=== PATIENT | female | born 1965 | race Caucasian/White ===

== ENCOUNTER 2018-07-17 11:50 | Emergency (ER) | payer MEDICAID ==
[~2018-07-17] VITALS: Ht 152.4 cm; Wt 56.7 kg
--- NOTE | 2018-07-17 11:59 | NUR ---
PT AMBULATED TO ER BED 08
[2018-07-17 12:04] VITALS: BP 108/59
[2018-07-17] MEDS ORDERED: KETOROLAC 60 MG/2 ML VIAL IM ONE (12:10)
--- NOTE | 2018-07-17 12:10 | NUR ---
PT BIB SELF FOR LOWER BACK JOSHUA/SACRAL X1 DAY. PT REPORTS GOING ON SLIDE WITH GRANDAUGHTER AND LANDING ON BUTT. SHE THINKS IT MIGHT HAVE EXACERBATED HER SCIATICA. PT REPORTS "FEELS LIKE BEING PUNCHED" LIKE PAIN AT 10/10 IN LOWER BACK/SACRAL REGION THAT RADITES DOWN BLE. PT REPORTS TINGLING IN FEET AND TOES. +CMS, NO BRUISING, SWELLING, OR DEFORMITIES PRESENT. PT DENEIS HITTING HEAD OR ANY OTHER PART OF BODY. 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 VSS. VICTORINA ELIZONDO TO SEE PT. MEDHX:SCIATICA RX:NONE
--- NOTE | 2018-07-17 12:16 | NUR ---
PT TAKEN TO RADIOLOGY AT THIS TIME
--- NOTE | 2018-07-17 12:25 | NUR ---
PT RETURNED FROM RADIOLOGY AT THIS TIME
--- NOTE | 2018-07-17 14:16 | NUR ---
PT LAYING ON LT SIDE IN BED, ON PHONE. PT STATES THAT SHE CANNOT LAY ON HER BACK BECAUSE OF PAIN. REPORTS PAIN AT 10/10 AT THIS TIME. VSS.
[2018-07-17] MEDS ORDERED: MORPHINE SULFATE 4 MG/ML SYR IM ONE (14:25)
[2018-07-17 14:41] VITALS: BP 94/68
--- NOTE | 2018-07-17 14:41 | NUR ---
Patient discharged with v/s stable. Written and verbal after care instructions given and explained. Patient alert, oriented and verbalized understanding of instructions. Ambulatory with steady gait. All questions addressed prior to discharge. ID band removed. Patient advised to follow up with PMD. Rx of NORCO given. Patient educated on indication of medication including possible reaction and side effects. Opportunity to ask questions provided and answered. PT WAITING IN LOBBY FOR DAUGHTER TO PICK HER UP.
== END 2018-07-17 14:41 | disposition home or self-care (01) ==
LOC: MED 11:50
DX: M54.9 Dorsalgia, unspecified (principal); F17.200 Nicotine dependence, unspecified, uncomplicated; J44.9 Chronic obstructive pulmonary disease, unspecified; Z90.49 Acquired absence of other specified parts of digestive tract; Z85.9 Personal history of malignant neoplasm, unspecified; W19.XXXA Unspecified fall, initial encounter; Y93.89 Activity, other specified; Y92.89 Other specified places as the place of occurrence of the external cause; Y99.8 Other external cause status
CPT/HCPCS: 72100; 81002; 81025; 96372; 99283; J1885; J2270

== ENCOUNTER 2018-07-26 07:56 | Emergency (ER) | payer MEDICAID ==
[~2018-07-26] VITALS: Ht 152.4 cm; Wt 52.2 kg
[2018-07-26 07:59] VITALS: BP 154/73
--- NOTE | 2018-07-26 08:08 | NUR ---
Note undone in EDM - 07/26/18 at 0829 by [email or web address] 53 Y FEMALE BIB SELF C/O MOIST COUGH, CHEST CONGESTION , SOB X LAST NIGHT. PT STATES SHE HAS COMPLETED 7 HHN TREATMENTS AT HOME; FEELS SAME WITH NO RELIEF. FULL CLEAR SPEECH, NO ACCESSORY MUSCLE USE NOTED AT THIS TIME. WHEEZING BILATERALLY. PT OXYGEN AT 98% RA. PT STATES IT IS DIFFICULT TO TALK. VSS AT THIS TIME. AA0X4. BED IS DOWN, LOCKED, BED RAIL X 1, ERMD NOTIFIED. HX--COPD (INTUBATED 2017), ASTHMA RX--ALBUTEROL
--- NOTE | 2018-07-26 08:08 | NUR ---
53 Y FEMALE BIB SELF C/O MOIST COUGH, CHEST CONGESTION , SOB X LAST NIGHT. PT STATES SHE HAS COMPLETED 7 HHN TREATMENTS AT HOME; FEELS SAME WITH NO RELIEF. FULL CLEAR SPEECH, NO ACCESSORY MUSCLE USE NOTED AT THIS TIME. RONCHI BILATERALLY. PT OXYGEN AT 98% RA. PT STATES IT IS DIFFICULT TO TALK. VSS AT THIS TIME. AA0X4. BED IS DOWN, LOCKED, BED RAIL X 1, ERMD NOTIFIED. HX--COPD (INTUBATED 2018), ASTHMA RX--ALBUTEROL
[2018-07-26] MEDS ORDERED: DEXAMETHASONE 10 MG/ML VIAL PO ONE (08:15)
--- NOTE | 2018-07-26 08:20 | NUR ---
XRAT AT BEDSIDE
[2018-07-26 09:06] VITALS: BP 151/72
--- NOTE | 2018-07-26 09:06 | NUR ---
Patient discharged with v/s stable. Written and verbal after care instructions given and explained. Patient alert, oriented and verbalized understanding of instructions. Ambulatory with steady gait. All questions addressed prior to discharge. ID band removed. Patient advised to follow up with PMD. Rx of GUITASSIN, ALBUTEROL INHALATION, ALBUTEROL SOLUTION, AZITHROMYCIN, PREDNISONE given. Patient educated on indication of medication including possible reaction and side effects. Opportunity to ask questions provided and answered.
== END 2018-07-26 09:06 | disposition home or self-care (01) ==
LOC: MED 07:56
DX: J44.1 Chronic obstructive pulmonary disease with (acute) exacerbation (principal); F17.210 Nicotine dependence, cigarettes, uncomplicated; Z98.890 Other specified postprocedural states
CPT/HCPCS: 71045; 93005; 99283; J1100; Q0092

== ENCOUNTER 2018-08-05 23:59 | Emergency (ER) | payer MEDICAID ==
[~2018-08-05] VITALS: Ht 152.4 cm; Wt 48.5 kg
[2018-08-06 00:08] VITALS: BP 131/74
--- NOTE | 2018-08-06 00:08 | NUR ---
TO BED # 08 AMBULATORY , REPORT GIVEN TO RYLAN GRACE
--- NOTE | 2018-08-06 00:10 | NUR ---
53/F PRESENTS TO ED, C/O CONSTANT STABBING R FLANK/RUQ TO R MID BACK PAIN, X2 DAYS, WORSENING TODAY. PT REPORTS N/V X2 EPISODES TODAY. LBM TODAY, REPORTS CONSTIPATION. PT DENIES FEVER, CP, SOB, DIARRHEA OR DYSURIA. BS HYPERACTIVE X4, ABD SOFT ROUND TENDER TO R FLANK. AOX4, GCS 15, SKIN PINK WARM AND DRY, RR EVEN AND UNLABORED. HX ASTHMA, COPD, GASTRIC SLEEVE, CHOLECYSTECTOMY, SCIATICA, SMOKER (1PP 3DAYS)
[2018-08-06] MEDS ORDERED: MORPHINE SULFATE 4 MG/ML SYR IVP ONE (00:45)
[2018-08-06 01:06] LABS: BASOPHILS % (AUTO) 0.2 % (0.0-2.0); EOSINOPHILS # (AUTO) 0.6 K/uL (0-0.4); EOSINOPHILS % (AUTO) 4.2 % (0.0-4.0); HEMATOCRIT 38.8 % (36-48); HEMOGLOBIN 12.5 g/dL (12.0-16.0); LYMPHOCYTES # (AUTO) 0.8 K/uL (2.5-16.5); MEAN CORPUSCULAR HEMOGLOBIN 25 pg (27-31); MEAN CORPUSCULAR HGB CONC 32 g/dL (33-37); MEAN CORPUSCULAR VOLUME 77.6 fL (80-94); MONOCYTES # (AUTO) 0.1 K/uL (0.8-1.0); NEUTROPHILS # (AUTO) 11.7 K/uL (1.8-7.7); NEUTROPHILS % (AUTO) 88.2 % (42.2-75.2); PLATELET COUNT (AUTO) 375 K/uL (140-450); RED CELL DISTRIBUTION WIDTH 15.8 % (11.6-13.7); WHITE BLOOD COUNT (AUTO) 13.2 K/uL (4.8-10.8)
[2018-08-06 01:16] LABS: LYMPHOCYTES % (AUTO) 6.4 % (20.5-51.1)
[2018-08-06 01:18] LABS: ANION GAP 9.9 (8-16); CARBON DIOXIDE 27.9 mmol/L (21-32); CREATININE 0.9 mg/dL (0.6-1.3); POTASSIUM 3.8 mmol/L (3.5-5.1)
[2018-08-06 01:22] LABS: ALBUMIN 3.4 g/dL (3.4-5.0); TOTAL BILIRUBIN 0.4 mg/dL (0.0-1.0)
--- NOTE | 2018-08-06 01:25 | NUR ---
PT TAKEN TO CT
[2018-08-06 01:30] LABS: APPEARANCE,URINE CLEAR (CLEAR); BILIRUBIN,URINE NEGATIVE (NEGATIVE); BLOOD, URINE NEGATIVE (NEGATIVE); COLOR,URINE YELLOW (YELLOW); LEUKOCYTE ESTERASE ,URINE 1+ (NEGATIVE); NITRITE, URINE NEGATIVE (NEGATIVE); PH,URINE 6.5 (5.0-9.0); UGLUCOSE NEGATIVE (NEGATIVE)
[2018-08-06 01:52] LABS: RBC,URINE 0-5 /HPF (0-5)
[2018-08-06] MEDS ORDERED: cefTRIAXone 1,000 MG in LIDOCAINE MPF 1% - 5 mL VIAL 2.1 ML IM ONE (02:05)
[2018-08-06 02:50] VITALS: BP 126/72
--- NOTE | 2018-08-06 02:50 | NUR ---
Patient discharged with v/s stable. Written and verbal after care instructions given and explained. Patient alert, oriented and verbalized understanding of instructions. Ambulatory with steady gait. All questions addressed prior to discharge. ID band removed. Patient advised to follow up with PMD. Rx of NAPROXEN, CIPRO given. Patient educated on indication of medication including possible reaction and side effects. Opportunity to ask questions provided and answered.
== END 2018-08-06 02:50 | disposition home or self-care (01) ==
LOC: MED 23:59
DX: N12 Tubulo-interstitial nephritis, not specified as acute or chronic (principal); F17.210 Nicotine dependence, cigarettes, uncomplicated; J44.9 Chronic obstructive pulmonary disease, unspecified; Z85.6 Personal history of leukemia; Z90.49 Acquired absence of other specified parts of digestive tract
CPT/HCPCS: 36415; 74176; 80053; 81001; 83690; 85025; 87086; 96372; 96374; 99284; J0696; J2001; J2270; 99283

== ENCOUNTER 2018-08-09 06:40 | Emergency (ER) | payer MEDICAID ==
[~2018-08-09] VITALS: Ht 152.4 cm; Wt 48.5 kg
[2018-08-09 06:46] VITALS: BP 131/90
--- NOTE | 2018-08-09 06:46 | NUR ---
to bed # 09 ambulatory
--- NOTE | 2018-08-09 07:05 | NUR ---
PT BIB self C/O lower back pain for 5 days. Reports constant sharp 10/10 pain in RT lower back. PT denies trauma, no swelling, bruising, or deformity present. Seen by ERMD 08/05/18 for UTI and recieved ABX. PT reports pain is unbearable. VSS. ER MD to see pt.
[2018-08-09] MEDS ORDERED: ONDANSETRON 4 MG ODT PO ONE (07:15)
[2018-08-09] MEDS ORDERED: KETOROLAC 30 MG/ML VIAL IM ONE (07:15)
[2018-08-09] MEDS ORDERED: MORPHINE SULFATE 4 MG/ML SYR IM ONE (07:15)
[2018-08-09 07:40] LABS: APPEARANCE,URINE CLEAR (CLEAR); BILIRUBIN,URINE NEGATIVE (NEGATIVE); BLOOD, URINE NEGATIVE (NEGATIVE); COLOR,URINE YELLOW (YELLOW); LEUKOCYTE ESTERASE ,URINE NEGATIVE (NEGATIVE); NITRITE, URINE NEGATIVE (NEGATIVE); UGLUCOSE NEGATIVE (NEGATIVE)
[2018-08-09] MEDS ORDERED: HYDROcodone/APAP 5/325 MG 1 TAB TAB PO ONE (08:10)
[2018-08-09 08:35] VITALS: BP 125/75
== END 2018-08-09 08:34 | disposition home or self-care (01) ==
LOC: MED 06:40
DX: R10.9 Unspecified abdominal pain (principal); J44.9 Chronic obstructive pulmonary disease, unspecified; Z85.6 Personal history of leukemia
CPT/HCPCS: 81003; 81025; 96372; 99283; J1885; J2270; Q0162

== ENCOUNTER 2018-10-07 14:13 | Emergency (ER) | payer MEDICAID ==
[~2018-10-07] VITALS: Ht 152.4 cm; Wt 52.6 kg
[2018-10-07 14:22] VITALS: BP 112/72
--- NOTE | 2018-10-07 14:48 | NUR ---
x ray at bedside.
--- NOTE | 2018-10-07 14:50 | NUR ---
PT PRESENTS TO ED WITH C/O PRODUCTIVE COUGH X 4 DAYS. +N/+V/+FEVER. AFEBRILE AT THIS TIME. ORAL TEMP 98.2. PATIENT STATES GENERALIZED PAIN IS 10/10 AT THIS TIME. ERMD TO EVALUATE PT.
--- NOTE | 2018-10-07 14:55 | NUR ---
DR. QUINN BEDSIDE EVALUATING PT
[2018-10-07] MEDS ORDERED: ONDANSETRON 4 MG ODT PO ONE (15:00)
[2018-10-07] MEDS ORDERED: PHENYLEPHRINE 0.5% 15 ML BTL NS ONE (15:00)
[2018-10-07 15:14] VITALS: BP 112/72
--- NOTE | 2018-10-07 15:14 | NUR ---
Patient discharged with v/s stable. Written and verbal after care instructions given and explained. Patient alert, oriented and verbalized understanding of instructions. Ambulatory with STEADY GAIT. All questions addressed prior to discharge. ID band removed. Patient advised to follow up with PMD. Rx of ZOFRAN, AZITHROMYCIN, & GUAIATUSSIN given. Patient educated on indication of medication including possible reaction and side effects. Opportunity to ask questions provided and answered.
== END 2018-10-07 15:14 | disposition home or self-care (01) ==
LOC: MED 14:13
DX: J20.9 Acute bronchitis, unspecified (principal); R11.2 Nausea with vomiting, unspecified; J44.9 Chronic obstructive pulmonary disease, unspecified; F41.9 Anxiety disorder, unspecified; F32.9 Major depressive disorder, single episode, unspecified; F17.200 Nicotine dependence, unspecified, uncomplicated; Z85.6 Personal history of leukemia; Z90.49 Acquired absence of other specified parts of digestive tract; Z98.84 Bariatric surgery status
CPT/HCPCS: 71045; 99283; Q0092; Q0162

== ENCOUNTER 2018-10-16 19:38 | Emergency (ER) | payer MEDICAID ==
[~2018-10-16] VITALS: Ht 165.1 cm; Wt 48.1 kg
[2018-10-16 19:47] VITALS: BP 125/81
--- NOTE | 2018-10-16 19:57 | NUR ---
PT TRIAGED, SENT BACK TO LOBBY AWAITING BED
--- NOTE | 2018-10-16 22:44 | NUR ---
PT AMBULATED TO ER BED 07
--- NOTE | 2018-10-16 22:50 | NUR ---
53 YO F BIB SELF PRESENTS TO ED C/O PERSISTENT HACKING COUGH X 2 WEEKS. PT WAS SEEN AND GIVEN TX FOR BRONCHITIS. PT STATES SHE COMPLETED 2 ROUNDS OF ABX BUT CANNOT REMEMBER NAMES. PT STATES SOMETIMES COUGH IS PRODUCTIVE WITH GREEN SPUTUM. PT C/O 11/14 CHEST DISCOMFORT FROM COUGH. DENIES FEVER, N/V. -- PT AWAKE, ALERT, CALM, COOPERATIVE. ANSWERING QUESTIONS APPROPRIATELY. BEHAVIOR APPROPRIATE. -- SKIN PINK, WARM, DRY. BREATHING EVEN, UNLABORED. WHEEZING HEARD TO LEFT UPPER LEFT LOBE. PMH-- COPD, ASTHMA, DEPRESSION, ANXIETY, BIPOLAR DISORDER Addendum: 10/17/18 at 0257 by [facility] -- HACKING COUGH PRESENT WITH DEEP BREATHING.
--- NOTE | 2018-10-16 23:11 | NUR ---
Antonia wade in [facility] - 10/16/18 at 2312 by [facility] PT'S MOTHER TOBI:
--- NOTE | 2018-10-17 00:29 | NUR ---
Patient being evaluated by Dr. Lan at bedside.
[2018-10-17] MEDS ORDERED: predniSONE 20 MG TAB PO ONE (00:50)
[2018-10-17] MEDS ORDERED: ALBUTEROL SULFATE/IPRATROPIU 3 ML SOL IH ONE (00:50)
--- NOTE | 2018-10-17 00:52 | NUR ---
XRAY AT BEDSIDE.
--- NOTE | 2018-10-17 00:54 | NUR ---
RT called for breathing treatment.
--- NOTE | 2018-10-17 00:59 | NUR ---
RT AT BEDSIDE.
[2018-10-17] MEDS ORDERED: ALBUTEROL 0.083% 2.5 MG/3 ML NEBU INH ONE (02:30)
--- NOTE | 2018-10-17 02:39 | NUR ---
RT AT BEDSIDE.
[2018-10-17 03:26] VITALS: BP 116/67
--- NOTE | 2018-10-17 03:26 | NUR ---
Patient discharged with v/s stable. Written and verbal after care instructions given and explained. Patient alert, oriented and verbalized understanding of instructions. Ambulatory with steady gait. All questions addressed prior to discharge. ID band removed. Patient advised to follow up with PMD. Rx of Albuterol Inh and neb given. Patient educated on indication of medication including possible reaction and side effects. Opportunity to ask questions provided and answered.
== END 2018-10-17 03:26 | disposition home or self-care (01) ==
LOC: MED 19:38
DX: J44.1 Chronic obstructive pulmonary disease with (acute) exacerbation (principal); R07.0 Pain in throat; F41.9 Anxiety disorder, unspecified; F31.9 Bipolar disorder, unspecified; Z85.6 Personal history of leukemia
CPT/HCPCS: 71045; 94640; 99284; J7512; J7613; J7620

== ENCOUNTER 2019-02-21 14:20 | Emergency (ER) | payer MEDICAID ==
[~2019-02-21] VITALS: Ht 152.4 cm; Wt 49.4 kg
[2019-02-21 14:35] VITALS: BP 94/69
[2019-02-21] MEDS: ALBUTEROL SULFATE/IPRATROPIU 3 ML SOL IH ONE (15:00)
[2019-02-21] MEDS ORDERED: cefTRIAXone 1,000 MG VIAL ONE (15:54)
[2019-02-21] MEDS ORDERED: AZITHROMYCIN 500 MG INJ VIAL IV ONE (15:54)
[2019-02-21 16:02] LABS: BASOPHILS % (AUTO) 0.7 % (0.0-2.0); EOSINOPHILS % (AUTO) 0.5 % (0.0-4.0); HEMATOCRIT 34.6 % (36-48); HEMOGLOBIN 11.6 g/dL (12.0-16.0); LYMPHOCYTES # (AUTO) 0.7 K/uL (2.5-16.5); LYMPHOCYTES % (AUTO) 12.3 % (20.5-51.1); MEAN CORPUSCULAR HEMOGLOBIN 30 pg (27-31); MEAN CORPUSCULAR HGB CONC 34 g/dL (33-37); MEAN CORPUSCULAR VOLUME 89.7 fL (80-94); MONOCYTES # (AUTO) 0.5 K/uL (0.8-1.0); MONOCYTES % (AUTO) 8.8 % (1.7-9.3); NEUTROPHILS # (AUTO) 4.6 K/uL (1.8-7.7); NEUTROPHILS % (AUTO) 77.7 % (42.2-75.2); PLATELET COUNT (AUTO) 237 K/uL (140-450); RED BLOOD CELL COUNT(AUTO) 3.86 MIL/uL (4.20-5.40); RED CELL DISTRIBUTION WIDTH 12.6 % (11.6-13.7); WHITE BLOOD COUNT (AUTO) 5.9 K/uL (4.8-10.8)
[2019-02-21] MEDS: NACL 0.9% 1,000 ML IV SCH (16:42)
[2019-02-21] MEDS: cefTRIAXone 1,000 MG in DEXT 5% MINI-BAG PLUS 50 ML IV ONE (16:43)
[2019-02-21 17:00] LABS: ANION GAP 13.2 (8-16); CARBON DIOXIDE 26.7 mmol/L (21-32); POTASSIUM 3.9 mmol/L (3.5-5.1)
[2019-02-21] MEDS: AZITHROMYCIN 500 MG in DEXTROSE 5% 250 ML IV ONE (17:09)
[2019-02-21 17:14] LABS: ALBUMIN 3.3 g/dL (3.4-5.0); MAGNESIUM 1.7 mg/dL (1.8-2.4); TOTAL BILIRUBIN 0.3 mg/dL (0.0-1.0)
[2019-02-21 17:15] LABS: PROTHROMBIN TIME 9.9 secs (10.8-13.4)
[2019-02-21 17:54] LABS: D-DIMER < 100 ng/ml (0-400)
[2019-02-21 18:53] VITALS: BP 116/64
== END 2019-02-21 18:53 | disposition home or self-care (01) ==
LOC: MED 14:20
DX: J10.1 Influenza due to other identified influenza virus with other respiratory manifestations (principal); J44.9 Chronic obstructive pulmonary disease, unspecified
CPT/HCPCS: 36415; 71045; 80053; 83605; 83735; 84484; 85025; 85379; 85610; 85730; 87040; 87804; 93005; 94640; 94760; 96365; 96367; 99284; J0456; J0696; J7030; J7060; J7620; Q0092; C1758

== ENCOUNTER 2019-04-15 06:17 | Emergency (ER) | payer MEDICAID ==
[~2019-04-15] VITALS: Ht 152.4 cm; Wt 54.0 kg
[2019-04-15 06:23] VITALS: BP 121/83
--- NOTE | 2019-04-15 06:28 | NUR ---
PT AMBULATED TO BED #4
--- NOTE | 2019-04-15 06:30 | NUR ---
PT PRESENTS TO THE ED WITH SOB. PATIENT HAS HX OF ASTHMA AND REPORTS TAKING ALBUTEROL BEFORE COMING TO THE ED. EXPIRATORY AND INSPIRATORY WHEEZES NOTED. O2 SAT 100% ON ROOM AIR. NO S/S OF DISTRESS NOTED AT THIS TIME. BED LOWERED WITH SIDE RAILS UP
[2019-04-15] MEDS: predniSONE 20 MG TAB PO ONE (06:46)
[2019-04-15] MEDS: ALBUTEROL SULFATE/IPRATROPIU 3 ML SOL IH ONE (06:51)
--- NOTE | 2019-04-15 07:11 | NUR ---
RECEIVED REPORT FROM NIA GRACE.
--- NOTE | 2019-04-15 07:35 | NUR ---
Dr. Anne is evaluating the patient at bedside.
[2019-04-15] MEDS ORDERED: ALBUTEROL 0.083% 2.5 MG/3 ML NEBU INH ONE (07:50)
[2019-04-15] MEDS ORDERED: methylPREDNISolone SS 125 MG/2 ML VIAL ONE (08:00)
[2019-04-15] MEDS ORDERED: WATER STERILE 10 ML MC ONE (08:00)
[2019-04-15] MEDS: methylPREDNISolone SS 125 MG in WATER STERILE 2 ML IVP ONE (08:10)
[2019-04-15] MEDS: MAG SULF 2000 MG/WATER PREMIX 50 ML IV ONE (08:12)
[2019-04-15] MEDS: ALBUTEROL 0.083% 2.5 MG/3 ML NEBU INH ONE (08:44)
[2019-04-15] MEDS: IPRATROPIUM 0.02% 0.5 MG/2.5 ML NEBU INH ONE (08:44)
--- NOTE | 2019-04-15 08:45 | NUR ---
Breathing treatment administered by respiratory therapist at bedside.
[2019-04-15 10:26] VITALS: BP 112/71
--- NOTE | 2019-04-15 10:26 | NUR ---
Patient discharged with v/s stable. Written and verbal after care instructions given and explained. Patient alert, oriented and verbalized understanding of instructions. Ambulatory with steady gait. All questions addressed prior to discharge. ID band removed. Patient advised to follow up with PMD. Rx of ALBUTEROL, PREDNISONE, ADVIR given. Patient educated on indication of medication including possible reaction and side effects. Opportunity to ask questions provided and answered. Addendum: 04/15/19 at 1055 by [facility] DC BY DR MEMBRENO.
== END 2019-04-15 10:26 | disposition home or self-care (01) ==
LOC: MED 06:17
DX: J44.1 Chronic obstructive pulmonary disease with (acute) exacerbation (principal); F17.210 Nicotine dependence, cigarettes, uncomplicated; Z71.6 Tobacco abuse counseling
CPT/HCPCS: 71045; 87804; 94640; 96365; 96375; 99284; J2930; J3475; J7512; J7613; J7620; J7644